=== PATIENT | male | born 1950 | race Caucasian/White ===

== ENCOUNTER 2018-08-22 05:26 | Outpatient (CLI) | payer MEDICARE ==
[2018-08-22 10:30] LABS: #Basophils 0.1 thou/uL (0.0-0.2); #Eosinphils 0.2 thou/uL (0.0-0.7); #Lymphocytes 1.5 thou/uL (1.20-3.40); #Monocytes 0.7 thou/uL (0.11-0.59); #Neutrophils 3.2 thou/uL (1.40-6.50); %Basophils 0.9 % (0.0-1.0); %Eosinophils 3.1 % (0.0-10.0); %Lymphocytes 26.4 % (21.0-51.0); %Neutrophils 57.5 % (42.0-75.0); Hemoglobin 16.3 g/dL (14.0-18.0); Mean Corpuscular Hemoglobin 26.3 pg (27.0-31.0); Mean Corpuscular Volume 84.6 fL (78.0-98.0); Mean Platelet Volume 9.7 fL (7.4-10.4); Platelet Count 149 thou/uL (130-400); RBC Distribution Width 14.4 % (11.5-14.5); Red Blood Cell (RBC) Count 6.19 mill/uL (4.70-6.10); White Blood Cell (WBC) Count 5.6 thou/uL (4.8-10.8)
[2018-08-22 10:59] LABS: Anion Gap 17 mmol/L (10-20); BUN (Urea Nitrogen) 20 mg/dL (8.4-25.7); Calc. Creatinine Clearance 0 mL/min (70-130); Calcium 10.4 mg/dL (7.8-10.44); Carbon Dioxide 25 mmol/L (23-31); Chloride 98 mmol/L (98-107); Estimated GFR-MDRD 59; Glucose 103 mg/dL (80-115); Potassium 4.5 mmol/L (3.5-5.1); Sodium 135 mmol/L (136-145)
== END 2018-08-22 05:27 | disposition home or self-care (01) ==
LOC: LABBT 05:26
PROVIDERS: ATTEND Surgery
DX: Z01.818 Encounter for other preprocedural examination (principal); K40.90 Unilateral inguinal hernia, without obstruction or gangrene, not specified as recurrent; K43.2 Incisional hernia without obstruction or gangrene
CPT/HCPCS: 80048; 85025; 93005; 93010

== ENCOUNTER 2018-08-29 08:50 | Day surgery (SDC) | payer MEDICARE ==
[2018-08-22 10:21] VITALS: BMI 33.9
[2018-08-29] MEDS ORDERED: Bupivacaine HCl 0.5%/Epinephrine 1:200,000/PF 30 ml Vial ONE (11:12)
[2018-08-29] MEDS ORDERED: Fentanyl 100 MCG/2 ML VIAL ONE ×4 (11:28→14:48)
[2018-08-29] MEDS ORDERED: Famotidine/PF 20 mg/2ml Vial ONE (11:28)
[2018-08-29] MEDS ORDERED: Nitroglycerin 2% Ointment 1 INCH/1 GM Packet ONE (12:22)
[2018-08-29] MEDS ORDERED: Metoclopramide HCl 10 MG/2 ML VIAL ONE (13:31)
[2018-08-29] MEDS ORDERED: PROPOFOL 200 MG/20 ML VIAL ONE (13:31)
[2018-08-29] MEDS ORDERED: Glycopyrrolate 0.2 MG/ML 5 ML SYRINGE ONE (13:31)
[2018-08-29] MEDS ORDERED: Lidocaine 1% PF 5 ML VIAL ONE (13:31)
[2018-08-29] MEDS ORDERED: Rocuronium Bromide 10 MG/ML (10ML VIAL) ONE (13:31)
[2018-08-29] MEDS ORDERED: HYDROcodone/Acetaminophen 5/325 mg Tablet ONE (15:53)
[2018-08-29] MEDS ORDERED: Tamsulosin HCl 0.4 MG CAP ONE (17:46)
[2018-08-29] MEDS ORDERED: Morphine 4 MG/ML VIAL ONE (18:48)
[2018-08-29] MEDS ORDERED: Promethazine HCl 25 MG/ML VIAL ONE (18:49)
--- NOTE | 2018-09-01 11:24 | OP ---
DATE OF PROCEDURE: 08/29/2018 PREOPERATIVE DIAGNOSIS: Incisional hernia, left inguinal hernia. POSTOPERATIVE DIAGNOSIS: Incisional hernia, left inguinal hernia. PROCEDURE: 1. Incisional hernia repair with mesh, Ventralex ST small. 2. Left inguinal hernia repair with mesh, PHS extended. ANESTHESIA: General. ESTIMATED BLOOD LOSS: Minimal. COMPLICATIONS: None. SPECIMENS: None. FINDINGS: On diagnostic laparoscopy, the patient was found to have significant intraabdominal adhesions which made the laparoscopic approach not possible. Decision was made to open technique. DESCRIPTION OF PROCEDURE: The patient was taken to the operating room and laid supine on the operating room table. After general anesthetic was obtained, a Du was placed. The abdomen was prepped and draped in a sterile fashion. Left subcostal 5 mm Optiview trocar was placed without injury and high-flow pneumoperitoneum was obtained. The patient had significant wall-wall intraabdominal adhesions. Decision was made open. Oblique incision was made in the left lower quadrant above the pubic tubercle. Cautery dissected down through Marvin's to expose the external oblique. External oblique fibers opened along the course of the external ring. Contents of the inguinal canal were dissected from the backside of the external oblique. Ilioinguinal nerve was found and segmentally high removed to prevent postop pain. There was a large indirect hernia sac which was dissected away from other cord structures and dunked back into the internal ring. PHS extended mesh brought into the sterile field. The underlay was placed in the internal ring and its fibers laid out flat against the posterior abdominal wall. The overlay was laid in the inguinal floor. The overlay was cut laterally to incorporate the internal ring. The overlay sewn distally to the pubic tubercle medial to the transverse arch lateral to the shelving edge of inguinal ligament to reform the structure. The two ends of cut mesh were reapproximated at the internal ring to reform that structure. The extra mesh was tacked back up into the external oblique proximally. The wound was irrigated. Local anesthetic was applied, tunneled cath for postop pain was started above the incision, left on top of the mesh for postop pain control. The wounds were closed using 3-0 Vicryl, 4-0 Monocryl, and Dermabond. The Marvin's had been closed using 3-0 Vicryl as well. Next, a curved incision was made below the umbilicus. Cautery was dissected down to the hernia sac. The hernia sac was done back into the preperitoneal space through the hernia defect. It was dissected from the backside of the abdominal wall. The Ventralex ST small mesh was brought into the sterile field. The underlay was placed through the hernia defect and its fibers laid out flat against the posterior abdominal wall. The tails of the mesh were laid out laterally. The tails of the mesh sewn via U-stitch of permanent braided suture to the edges of the fascia. The tails were then cut at the level of fascia. The wound was irrigated. Local anesthetic was applied. The wound was closed using 3-0 Vicryl, 4-0 Monocryl, and Dermabond. The patient was sent to Recovery in stable condition. All instrument counts, needle counts, lap counts are correct. Job ID: [id number]
== END 2018-08-29 19:30 | disposition home or self-care (01) ==
LOC: SDC 08:50
PROVIDERS: ATTEND Surgery
PROC: 0WUF0JZ Supplement Abdominal Wall with Synthetic Substitute, Open Approach (ICD-10-PCS; principal; 2018-08-29)
PROC: 0YU60JZ Supplement Left Inguinal Region with Synthetic Substitute, Open Approach (ICD-10-PCS; 2018-08-29)
DX: K43.2 Incisional hernia without obstruction or gangrene (principal); K40.90 Unilateral inguinal hernia, without obstruction or gangrene, not specified as recurrent; G89.29 Other chronic pain; M54.9 Dorsalgia, unspecified; E78.00 Pure hypercholesterolemia, unspecified; M19.90 Unspecified osteoarthritis, unspecified site; Z79.1 Long term (current) use of non-steroidal anti-inflammatories (NSAID); Z79.82 Long term (current) use of aspirin; Z79.899 Other long term (current) drug therapy; Z53.31 Laparoscopic surgical procedure converted to open procedure
CPT/HCPCS: 49505; 49560; 49568; C1781; J0131; J0670; J2001; J2270; J2550; J2704; J2765; J3010; S0028